=== PATIENT | male | born 1990 | race African-American/Black ===

== ENCOUNTER → 2017-09-15 | Emergency (ER) | payer MEDICAID ==
[~2017-09-15] VITALS: Ht 175.3 cm; Wt 98.4 kg
[2017-09-15 15:05] VITALS: BP_SYST 163
--- NOTE | 2017-09-15 16:01 | NUR ---
CALLED FOR BED ASSIGNMENT, UNABLE TO LOCATE PT.
--- NOTE | 2017-09-15 16:11 | NUR ---
CALLED FOR BED, UNABLE TO LOCATE PT.
--- NOTE | 2017-09-15 16:16 | NUR ---
UNABLE TO LOCATE PT. PT IS [facility]BS
== END | disposition still patient (30) ==
LOC: SED 14:23
DX: R05 Cough (principal); Z53.21 Procedure and treatment not carried out due to patient leaving prior to being seen by health care provider